=== PATIENT | male | born 1940 | race Caucasian/White ===

== ENCOUNTER → 2018-06-25 | Outpatient (CLI) | payer OTHER ==
[~2018-06-25] MED LIST: ALLOPURINOL 10100 M2 PO; ASPIRIN325 PO; CELEXA 20 MG TA20 M1 PO; DESYREL100 MG PO; DETROL LA4 MG PO; GABAPENTIN PO; HYDROCHLOROTHIA50 MG PO; INDOCIN SR75 MG PO; K-DUR10 ME1 PO; LISINOPRIL20 MG PO; LOVASTAT20 PO; MIRAPEX PO; PLAVIX 75 MG TA75 MG PO
--- NOTE | 2018-06-25 14:57 | 2DMMODE ---
[place] [address] 2 D/M-MODE ECHOCARDIOGRAM Name: HANS DAMON Room: [facility]#: [id number] Admission: 06/25/18 Attend Phys: Miriam Espinal, Discharge: Date of : 40 Date of Service: 06/25/18 1457 Report #: [id number] THIS REPORT FOR: //name// APPROVED REPORT Study performed: 06/25/2018 14:02:36 EXAM: Comprehensive 2D, Doppler, and color-flow Echocardiogram Patient Location: Out-Patient BSA: 2.56 HR: 74 bpm BP: 170/88 mmHg Other Information Study Quality: Adequate Indications CAD 2D Dimensions LVEF(%): 57.02 (>50%) IVSd: 13.79 (7-11mm) LVOT Diam: 24.02 (18-24mm) LVDd: 40.19 mm PWd: 12.55 (7-11mm) Ascending Ao: 38.38 (22-36mm) LVDs: 28.33 (25-40mm) Aortic Root: 31.93 mm Marquez's LVEF: 57.02 % Volumes Left Atrial Volume (Systole) LA ESV Index: 38.80 mL/m2 Aortic Valve AoV Peak Pepe.: 1.17 m/s AO Peak Gr.: 5.51 mmHg LVOT Max P.22 mmHg AO Mean Gr.: 3.42 mmHg LVOT Mean P.95 mmHg LVOT Max V: 1.03 m/s AO V2 VTI: 20.95 cm LVOT Mean V: 0.64 m/s ELAINE (VTI): 4.12 cm2 LVOT V1 VTI: 19.06 cm Mitral Valve E/A Ratio: 3.19 MV Decel. Time: 176.12 ms MV E Max Pepe.: 0.87 m/[place] [address] 2 D/M-MODE ECHOCARDIOGRAM Name: HANS DAMON Room: [facility]#: [id number] Admission: 06/25/18 Attend Phys: Miriam Espinal, Discharge: Date of : 40 Date of Service: 06/25/18 1457 Report #: [id number] MV PHT: 51.07 ms MVA (PHT): 4.31 cm2 TDI E/Lateral E': 8.70 E/Medial E': 8.70 Medial E' Pepe.: 0.10 m/s Lateral E' Pepe.: 0.10 m/s Pulmonary Valve PV Peak Pepe.: 0.99 m/s PV Peak Gr.: 3.92 mmHg Tricuspid Valve RAP Estimate: 5.00 mmHg TR Peak Gr.: 17.40 mmHg RVSP: 22.40 mmHg PA Pressure: 22.40 mmHg Left Ventricle The left ventricle is normal size. There is normal LV segmental wall motion. Mild left ventricular hypertrophy. Left ventricular systolic function is normal. The left ventricular ejection fraction is within the normal range. LVEF is 60-65%. This study is not technically sufficient to allow evaluation of the LV diastolic function due to atrial fibrillation. Right Ventricle The right ventricle is normal size. The right ventricular systolic function is normal. Atria Left atrium is mildly dilated. Aortic Valve Mild aortic valve sclerosis. No aortic regurgitation is present. There is no aortic valvular stenosis. Mitral Valve Mild mitral annular calcification. There is no mitral valve regurgitation noted. No evidence of mitral valve stenosis. Tricuspid Valve The tricuspid valve is normal in structure. Trace tricuspid regurgitation. Pulmonic Valve The pulmonary valve is normal in structure. There is no pulmonic [place] [address] 2 D/M-MODE ECHOCARDIOGRAM Name: HANS DAMON Room: [facility]#: [id number] Admission: 06/25/18 Attend Phys: Miriam Espinal, Discharge: Date of : 40 Date of Service: 06/25/18 1457 Report #: [id number] Great Vessels The aortic root is normal in size. IVC is normal in size and collapses with >50% inspiration Pericardium Mild circumferential pericardial effusion. <Conclusion> The left ventricle is normal size. Mild left ventricular hypertrophy. Left ventricular systolic function is normal. The left ventricular ejection fraction is within the normal range. LVEF is 60-65%. This study is not technically sufficient to allow evaluation of the LV diastolic function due to atrial fibrillation. The right ventricle is normal size. Left atrium is mildly dilated. Mild aortic valve sclerosis. No aortic regurgitation is present. There is no aortic valvular stenosis. Mild mitral annular calcification. There is no mitral valve regurgitation noted. No evidence of mitral valve stenosis. The tricuspid valve is normal in structure. Mild circumferential pericardial effusion. There is normal LV segmental wall motion. <ELECTRONICALLY SIGNED> By: Kennedy Tapia MD, FACC 06/25/18 1457 1457 1457 Kennedy Tapia MD, FACC /INF
== END ==
LOC: M.CRD 13:56
DX: I51.7 Cardiomegaly (principal); I34.8 Other nonrheumatic mitral valve disorders; I35.8 Other nonrheumatic aortic valve disorders; I25.10 Atherosclerotic heart disease of native coronary artery without angina pectoris; I48.1 Persistent atrial fibrillation

== ENCOUNTER → 2019-07-15 | Outpatient (CLI) | payer OTHER | LOC: M.WC 07:42 | DX: E11.622 Type 2 diabetes mellitus with other skin ulcer (principal); I87.311 Chronic venous hypertension (idiopathic) with ulcer of right lower extremity; L97.811 Non-pressure chronic ulcer of other part of right lower leg limited to breakdown of skin; I25.10 Atherosclerotic heart disease of native coronary artery without angina pectoris; I10 Essential (primary) hypertension; E11.40 Type 2 diabetes mellitus with diabetic neuropathy, unspecified; E66.01 Morbid (severe) obesity due to excess calories; M19.90 Unspecified osteoarthritis, unspecified site; I48.91 Unspecified atrial fibrillation; M06.9 Rheumatoid arthritis, unspecified; M10.9 Gout, unspecified; J44.9 Chronic obstructive pulmonary disease, unspecified; Z85.46 Personal history of malignant neoplasm of prostate; Z87.891 Personal history of nicotine dependence ==

== ENCOUNTER → 2019-07-23 | Outpatient (CLI) | payer OTHER | LOC: M.WC 04:58 | DX: E11.622 Type 2 diabetes mellitus with other skin ulcer (principal); I87.311 Chronic venous hypertension (idiopathic) with ulcer of right lower extremity; L97.811 Non-pressure chronic ulcer of other part of right lower leg limited to breakdown of skin; E11.40 Type 2 diabetes mellitus with diabetic neuropathy, unspecified; E66.01 Morbid (severe) obesity due to excess calories; M19.90 Unspecified osteoarthritis, unspecified site; I48.91 Unspecified atrial fibrillation; I25.10 Atherosclerotic heart disease of native coronary artery without angina pectoris; J44.9 Chronic obstructive pulmonary disease, unspecified; M10.9 Gout, unspecified; M06.9 Rheumatoid arthritis, unspecified; Z85.46 Personal history of malignant neoplasm of prostate; Z68.41 Body mass index [BMI] 40.0-44.9, adult; Z95.818 Presence of other cardiac implants and grafts; Z95.820 Peripheral vascular angioplasty status with implants and grafts; Z79.4 Long term (current) use of insulin; Z87.891 Personal history of nicotine dependence ==

== ENCOUNTER → 2019-07-29 | Outpatient (CLI) | payer OTHER | LOC: M.WC 05:18 | DX: E11.622 Type 2 diabetes mellitus with other skin ulcer (principal); I87.311 Chronic venous hypertension (idiopathic) with ulcer of right lower extremity; L97.818 Non-pressure chronic ulcer of other part of right lower leg with other specified severity; E11.40 Type 2 diabetes mellitus with diabetic neuropathy, unspecified; E66.01 Morbid (severe) obesity due to excess calories; I48.91 Unspecified atrial fibrillation; I25.10 Atherosclerotic heart disease of native coronary artery without angina pectoris; I10 Essential (primary) hypertension; J44.9 Chronic obstructive pulmonary disease, unspecified; M10.9 Gout, unspecified; M06.9 Rheumatoid arthritis, unspecified; Z85.46 Personal history of malignant neoplasm of prostate; Z87.891 Personal history of nicotine dependence; Z68.41 Body mass index [BMI] 40.0-44.9, adult ==

== ENCOUNTER → 2019-09-03 | Outpatient (CLI) | payer OTHER | LOC: M.WC 07:38 | DX: E11.622 Type 2 diabetes mellitus with other skin ulcer (principal); L97.811 Non-pressure chronic ulcer of other part of right lower leg limited to breakdown of skin; E11.40 Type 2 diabetes mellitus with diabetic neuropathy, unspecified; E66.01 Morbid (severe) obesity due to excess calories; I87.2 Venous insufficiency (chronic) (peripheral); I48.91 Unspecified atrial fibrillation; I25.10 Atherosclerotic heart disease of native coronary artery without angina pectoris; I10 Essential (primary) hypertension; J44.9 Chronic obstructive pulmonary disease, unspecified; M19.90 Unspecified osteoarthritis, unspecified site; M06.9 Rheumatoid arthritis, unspecified; Z85.46 Personal history of malignant neoplasm of prostate; Z87.891 Personal history of nicotine dependence; Z68.41 Body mass index [BMI] 40.0-44.9, adult; Z95.818 Presence of other cardiac implants and grafts ==

== ENCOUNTER → 2019-09-10 | Outpatient (CLI) | payer OTHER | LOC: M.WC 05:20 | DX: E11.622 Type 2 diabetes mellitus with other skin ulcer (principal); L97.811 Non-pressure chronic ulcer of other part of right lower leg limited to breakdown of skin; S81.801D Unspecified open wound, right lower leg, subsequent encounter; E11.40 Type 2 diabetes mellitus with diabetic neuropathy, unspecified; E66.01 Morbid (severe) obesity due to excess calories; I87.2 Venous insufficiency (chronic) (peripheral); I48.91 Unspecified atrial fibrillation; I25.10 Atherosclerotic heart disease of native coronary artery without angina pectoris; I10 Essential (primary) hypertension; J44.9 Chronic obstructive pulmonary disease, unspecified; M10.9 Gout, unspecified; M06.9 Rheumatoid arthritis, unspecified; Z85.46 Personal history of malignant neoplasm of prostate; Z68.41 Body mass index [BMI] 40.0-44.9, adult; Z87.891 Personal history of nicotine dependence; W19.XXXD Unspecified fall, subsequent encounter ==

== ENCOUNTER → 2019-09-17 | Outpatient (CLI) | payer OTHER | LOC: M.WC 05:15 | DX: E11.622 Type 2 diabetes mellitus with other skin ulcer (principal); L97.811 Non-pressure chronic ulcer of other part of right lower leg limited to breakdown of skin; S81.801D Unspecified open wound, right lower leg, subsequent encounter; E11.40 Type 2 diabetes mellitus with diabetic neuropathy, unspecified; E66.01 Morbid (severe) obesity due to excess calories; I87.2 Venous insufficiency (chronic) (peripheral); I48.91 Unspecified atrial fibrillation; I25.10 Atherosclerotic heart disease of native coronary artery without angina pectoris; I10 Essential (primary) hypertension; J44.9 Chronic obstructive pulmonary disease, unspecified; M06.9 Rheumatoid arthritis, unspecified; M10.9 Gout, unspecified; Z85.46 Personal history of malignant neoplasm of prostate; Z87.891 Personal history of nicotine dependence; Z68.41 Body mass index [BMI] 40.0-44.9, adult; W19.XXXD Unspecified fall, subsequent encounter ==

== ENCOUNTER → 2019-09-24 | Outpatient (CLI) | payer OTHER | LOC: M.WC 05:02 | DX: E11.622 Type 2 diabetes mellitus with other skin ulcer (principal); L97.811 Non-pressure chronic ulcer of other part of right lower leg limited to breakdown of skin; S81.801D Unspecified open wound, right lower leg, subsequent encounter; E11.40 Type 2 diabetes mellitus with diabetic neuropathy, unspecified; E66.01 Morbid (severe) obesity due to excess calories; I87.2 Venous insufficiency (chronic) (peripheral); I48.91 Unspecified atrial fibrillation; I25.10 Atherosclerotic heart disease of native coronary artery without angina pectoris; I10 Essential (primary) hypertension; J44.9 Chronic obstructive pulmonary disease, unspecified; M10.9 Gout, unspecified; M06.9 Rheumatoid arthritis, unspecified; Z85.46 Personal history of malignant neoplasm of prostate; Z87.891 Personal history of nicotine dependence; Z68.41 Body mass index [BMI] 40.0-44.9, adult; W19.XXXD Unspecified fall, subsequent encounter ==

== ENCOUNTER → 2019-10-01 | Outpatient (CLI) | payer OTHER | LOC: M.WC 04:22 | DX: E11.622 Type 2 diabetes mellitus with other skin ulcer (principal); L97.811 Non-pressure chronic ulcer of other part of right lower leg limited to breakdown of skin; S81.801D Unspecified open wound, right lower leg, subsequent encounter; E11.40 Type 2 diabetes mellitus with diabetic neuropathy, unspecified; E66.01 Morbid (severe) obesity due to excess calories; I87.2 Venous insufficiency (chronic) (peripheral); I48.91 Unspecified atrial fibrillation; I25.10 Atherosclerotic heart disease of native coronary artery without angina pectoris; I10 Essential (primary) hypertension; J44.9 Chronic obstructive pulmonary disease, unspecified; M10.9 Gout, unspecified; M06.9 Rheumatoid arthritis, unspecified; Z85.46 Personal history of malignant neoplasm of prostate; Z87.891 Personal history of nicotine dependence; Z68.41 Body mass index [BMI] 40.0-44.9, adult; W19.XXXD Unspecified fall, subsequent encounter ==

== ENCOUNTER → 2019-10-08 | Outpatient (CLI) | payer OTHER | LOC: M.WC 04:45 | DX: E11.622 Type 2 diabetes mellitus with other skin ulcer (principal); L97.811 Non-pressure chronic ulcer of other part of right lower leg limited to breakdown of skin; S81.801D Unspecified open wound, right lower leg, subsequent encounter; E11.40 Type 2 diabetes mellitus with diabetic neuropathy, unspecified; E66.01 Morbid (severe) obesity due to excess calories; I87.2 Venous insufficiency (chronic) (peripheral); I48.91 Unspecified atrial fibrillation; I25.10 Atherosclerotic heart disease of native coronary artery without angina pectoris; I10 Essential (primary) hypertension; J44.9 Chronic obstructive pulmonary disease, unspecified; M10.9 Gout, unspecified; M06.9 Rheumatoid arthritis, unspecified; Z85.46 Personal history of malignant neoplasm of prostate; Z87.891 Personal history of nicotine dependence; Z68.41 Body mass index [BMI] 40.0-44.9, adult; W19.XXXD Unspecified fall, subsequent encounter ==

== ENCOUNTER → 2019-10-15 | Outpatient (CLI) | payer OTHER | LOC: M.WC 05:13 | DX: E11.622 Type 2 diabetes mellitus with other skin ulcer (principal); L97.811 Non-pressure chronic ulcer of other part of right lower leg limited to breakdown of skin; S80.821A Blister (nonthermal), right lower leg, initial encounter; E11.40 Type 2 diabetes mellitus with diabetic neuropathy, unspecified; E66.01 Morbid (severe) obesity due to excess calories; I87.2 Venous insufficiency (chronic) (peripheral); I48.91 Unspecified atrial fibrillation; I25.10 Atherosclerotic heart disease of native coronary artery without angina pectoris; I10 Essential (primary) hypertension; J44.9 Chronic obstructive pulmonary disease, unspecified; M10.9 Gout, unspecified; M06.9 Rheumatoid arthritis, unspecified; Z85.46 Personal history of malignant neoplasm of prostate; Z87.891 Personal history of nicotine dependence; Z68.41 Body mass index [BMI] 40.0-44.9, adult; W19.XXXA Unspecified fall, initial encounter; Y93.89 Activity, other specified; Y92.89 Other specified places as the place of occurrence of the external cause; Y99.8 Other external cause status ==

== ENCOUNTER → 2019-10-22 | Outpatient (CLI) | payer OTHER | LOC: M.WC 04:43 | DX: E11.622 Type 2 diabetes mellitus with other skin ulcer (principal); L97.818 Non-pressure chronic ulcer of other part of right lower leg with other specified severity; E11.40 Type 2 diabetes mellitus with diabetic neuropathy, unspecified; E66.01 Morbid (severe) obesity due to excess calories; I87.2 Venous insufficiency (chronic) (peripheral); I48.91 Unspecified atrial fibrillation; I25.10 Atherosclerotic heart disease of native coronary artery without angina pectoris; I10 Essential (primary) hypertension; J44.9 Chronic obstructive pulmonary disease, unspecified; M06.9 Rheumatoid arthritis, unspecified; M10.9 Gout, unspecified; Z85.46 Personal history of malignant neoplasm of prostate; Z87.891 Personal history of nicotine dependence ==

== ENCOUNTER 2019-11-11 16:26 | Emergency (ER) | payer OTHER ==
[~2019-11-11] VITALS: Ht 182.9 cm; Wt 146.5 kg
[2019-11-11] MEDS ORDERED: METFORMIN HCL500 M3 PO (16:40)
[2019-11-11] MEDS ORDERED: PRANDIN1 MG PO (16:40)
[2019-11-11] MEDS ORDERED: FUROSEMIDE 40 M40 MG PO (16:41)
[2019-11-11] MEDS ORDERED: DIAZEPAM 5 MG5 M1 PO (16:41)
[2019-11-11] MEDS ORDERED: PERCOCET 5-3251 EACH PO (16:41)
[2019-11-11] MEDS ORDERED: OXYBUTYNIN 5 MG5 M2 PO (16:42)
[2019-11-11] MEDS ORDERED: COUMADIN7.5 MG PO (16:42)
[2019-11-11 20:12] VITALS: BP 163/82
== END 2019-11-11 20:16 | disposition home or self-care (01) ==
LOC: M.ERS 16:26
DX: S00.432A Contusion of left ear, initial encounter (principal); F17.210 Nicotine dependence, cigarettes, uncomplicated; Z96.651 Presence of right artificial knee joint; Z87.442 Personal history of urinary calculi; W18.39XA Other fall on same level, initial encounter; Y93.89 Activity, other specified; Y92.89 Other specified places as the place of occurrence of the external cause; Y99.8 Other external cause status

== ENCOUNTER → 2020-08-18 | Outpatient (CLI) | payer MEDICARE ==
[~2020-08-18] MED LIST changes: +COUMADIN7.5 MG PO; +DIAZEPAM 5 MG5 M1 PO; +FUROSEMIDE 40 M40 MG PO; +METFORMIN HCL500 M3 PO; +OXYBUTYNIN 5 MG5 M2 PO; +PERCOCET 5-3251 EACH PO; +PRANDIN1 MG PO
== END ==
LOC: M.WC 12:48
PROVIDERS: ATTEND Emergency Medicine Undersea and Hyperbaric Medicine
DX: E11.622 Type 2 diabetes mellitus with other skin ulcer (principal); L97.812 Non-pressure chronic ulcer of other part of right lower leg with fat layer exposed; L97.822 Non-pressure chronic ulcer of other part of left lower leg with fat layer exposed; I89.0 Lymphedema, not elsewhere classified; I87.2 Venous insufficiency (chronic) (peripheral); E11.40 Type 2 diabetes mellitus with diabetic neuropathy, unspecified; E66.01 Morbid (severe) obesity due to excess calories; I48.91 Unspecified atrial fibrillation; I25.10 Atherosclerotic heart disease of native coronary artery without angina pectoris; I10 Essential (primary) hypertension; J44.9 Chronic obstructive pulmonary disease, unspecified; M10.9 Gout, unspecified; M19.90 Unspecified osteoarthritis, unspecified site; M06.9 Rheumatoid arthritis, unspecified; Z85.46 Personal history of malignant neoplasm of prostate; Z87.891 Personal history of nicotine dependence; Z68.41 Body mass index [BMI] 40.0-44.9, adult; Z95.818 Presence of other cardiac implants and grafts

== ENCOUNTER → 2020-08-25 | Outpatient (CLI) | payer MEDICARE | LOC: M.WC 05:25 | PROVIDERS: ATTEND Emergency Medicine Undersea and Hyperbaric Medicine | DX: E11.622 Type 2 diabetes mellitus with other skin ulcer (principal); L97.812 Non-pressure chronic ulcer of other part of right lower leg with fat layer exposed; L97.822 Non-pressure chronic ulcer of other part of left lower leg with fat layer exposed; S81.002A Unspecified open wound, left knee, initial encounter; E11.40 Type 2 diabetes mellitus with diabetic neuropathy, unspecified; E66.01 Morbid (severe) obesity due to excess calories; I89.0 Lymphedema, not elsewhere classified; I87.2 Venous insufficiency (chronic) (peripheral); I48.91 Unspecified atrial fibrillation; I25.10 Atherosclerotic heart disease of native coronary artery without angina pectoris; I10 Essential (primary) hypertension; J44.9 Chronic obstructive pulmonary disease, unspecified; M10.9 Gout, unspecified; M06.9 Rheumatoid arthritis, unspecified; Z85.46 Personal history of malignant neoplasm of prostate; Z68.41 Body mass index [BMI] 40.0-44.9, adult; Z87.891 Personal history of nicotine dependence; X58.XXXA Exposure to other specified factors, initial encounter; Y93.89 Activity, other specified; Y92.89 Other specified places as the place of occurrence of the external cause; Y99.8 Other external cause status ==

== ENCOUNTER → 2020-09-01 | Outpatient (CLI) | payer MEDICARE | LOC: M.WC 07:51 | PROVIDERS: ATTEND Emergency Medicine Undersea and Hyperbaric Medicine | DX: E11.622 Type 2 diabetes mellitus with other skin ulcer (principal); L97.812 Non-pressure chronic ulcer of other part of right lower leg with fat layer exposed; L97.822 Non-pressure chronic ulcer of other part of left lower leg with fat layer exposed; S81.002D Unspecified open wound, left knee, subsequent encounter; E11.40 Type 2 diabetes mellitus with diabetic neuropathy, unspecified; E66.01 Morbid (severe) obesity due to excess calories; I89.0 Lymphedema, not elsewhere classified; I87.2 Venous insufficiency (chronic) (peripheral); I10 Essential (primary) hypertension; I48.91 Unspecified atrial fibrillation; I25.10 Atherosclerotic heart disease of native coronary artery without angina pectoris; J44.9 Chronic obstructive pulmonary disease, unspecified; M10.9 Gout, unspecified; M06.9 Rheumatoid arthritis, unspecified; Z85.46 Personal history of malignant neoplasm of prostate; Z68.41 Body mass index [BMI] 40.0-44.9, adult; Z87.891 Personal history of nicotine dependence; X58.XXXD Exposure to other specified factors, subsequent encounter ==

== ENCOUNTER → 2020-09-08 | Outpatient (CLI) | payer MEDICARE | LOC: M.WC 07:35 | PROVIDERS: ATTEND Emergency Medicine Undersea and Hyperbaric Medicine | DX: E11.622 Type 2 diabetes mellitus with other skin ulcer (principal); L97.812 Non-pressure chronic ulcer of other part of right lower leg with fat layer exposed; L97.822 Non-pressure chronic ulcer of other part of left lower leg with fat layer exposed; S81.002D Unspecified open wound, left knee, subsequent encounter; E11.40 Type 2 diabetes mellitus with diabetic neuropathy, unspecified; E66.01 Morbid (severe) obesity due to excess calories; I89.0 Lymphedema, not elsewhere classified; I87.2 Venous insufficiency (chronic) (peripheral); I48.91 Unspecified atrial fibrillation; I25.10 Atherosclerotic heart disease of native coronary artery without angina pectoris; I10 Essential (primary) hypertension; J44.9 Chronic obstructive pulmonary disease, unspecified; M06.9 Rheumatoid arthritis, unspecified; M10.9 Gout, unspecified; Z85.46 Personal history of malignant neoplasm of prostate; Z87.891 Personal history of nicotine dependence; Z68.41 Body mass index [BMI] 40.0-44.9, adult; X58.XXXD Exposure to other specified factors, subsequent encounter ==

== ENCOUNTER → 2020-09-15 | Outpatient (CLI) | payer MEDICARE | LOC: M.WC 00:41 | PROVIDERS: ATTEND Emergency Medicine Undersea and Hyperbaric Medicine | DX: E11.622 Type 2 diabetes mellitus with other skin ulcer (principal); L97.822 Non-pressure chronic ulcer of other part of left lower leg with fat layer exposed; L97.811 Non-pressure chronic ulcer of other part of right lower leg limited to breakdown of skin; E11.40 Type 2 diabetes mellitus with diabetic neuropathy, unspecified; E66.01 Morbid (severe) obesity due to excess calories; I89.0 Lymphedema, not elsewhere classified; I87.2 Venous insufficiency (chronic) (peripheral); I48.91 Unspecified atrial fibrillation; I25.10 Atherosclerotic heart disease of native coronary artery without angina pectoris; I10 Essential (primary) hypertension; J44.9 Chronic obstructive pulmonary disease, unspecified; M10.9 Gout, unspecified; M06.9 Rheumatoid arthritis, unspecified; Z85.46 Personal history of malignant neoplasm of prostate; Z87.891 Personal history of nicotine dependence; Z68.41 Body mass index [BMI] 40.0-44.9, adult ==

== ENCOUNTER → 2020-09-22 | Outpatient (CLI) | payer MEDICARE | LOC: M.WC 07:03 | PROVIDERS: ATTEND Emergency Medicine Undersea and Hyperbaric Medicine | DX: E11.622 Type 2 diabetes mellitus with other skin ulcer (principal); L97.822 Non-pressure chronic ulcer of other part of left lower leg with fat layer exposed; L97.811 Non-pressure chronic ulcer of other part of right lower leg limited to breakdown of skin; E11.40 Type 2 diabetes mellitus with diabetic neuropathy, unspecified; E66.01 Morbid (severe) obesity due to excess calories; I89.0 Lymphedema, not elsewhere classified; I87.2 Venous insufficiency (chronic) (peripheral); I48.91 Unspecified atrial fibrillation; I25.10 Atherosclerotic heart disease of native coronary artery without angina pectoris; I10 Essential (primary) hypertension; J44.9 Chronic obstructive pulmonary disease, unspecified; M10.9 Gout, unspecified; M06.9 Rheumatoid arthritis, unspecified; Z87.891 Personal history of nicotine dependence; Z85.46 Personal history of malignant neoplasm of prostate; Z68.41 Body mass index [BMI] 40.0-44.9, adult ==

== ENCOUNTER → 2020-09-29 | Outpatient (CLI) | payer MEDICARE | LOC: M.WC 07:56 | PROVIDERS: ATTEND Emergency Medicine Undersea and Hyperbaric Medicine | DX: E11.622 Type 2 diabetes mellitus with other skin ulcer (principal); L97.822 Non-pressure chronic ulcer of other part of left lower leg with fat layer exposed; L97.811 Non-pressure chronic ulcer of other part of right lower leg limited to breakdown of skin; E11.40 Type 2 diabetes mellitus with diabetic neuropathy, unspecified; E66.01 Morbid (severe) obesity due to excess calories; I89.0 Lymphedema, not elsewhere classified; I87.2 Venous insufficiency (chronic) (peripheral); I48.91 Unspecified atrial fibrillation; I25.10 Atherosclerotic heart disease of native coronary artery without angina pectoris; I10 Essential (primary) hypertension; J44.9 Chronic obstructive pulmonary disease, unspecified; M06.9 Rheumatoid arthritis, unspecified; M10.9 Gout, unspecified; Z85.46 Personal history of malignant neoplasm of prostate; Z87.891 Personal history of nicotine dependence ==

== ENCOUNTER → 2020-10-06 | Outpatient (CLI) | payer MEDICARE | LOC: M.WC 08:01 | PROVIDERS: ATTEND Emergency Medicine Undersea and Hyperbaric Medicine | DX: E11.622 Type 2 diabetes mellitus with other skin ulcer (principal); L97.828 Non-pressure chronic ulcer of other part of left lower leg with other specified severity; L97.811 Non-pressure chronic ulcer of other part of right lower leg limited to breakdown of skin; I87.2 Venous insufficiency (chronic) (peripheral); I89.0 Lymphedema, not elsewhere classified; E11.40 Type 2 diabetes mellitus with diabetic neuropathy, unspecified; M19.90 Unspecified osteoarthritis, unspecified site; I48.91 Unspecified atrial fibrillation; I25.10 Atherosclerotic heart disease of native coronary artery without angina pectoris; I10 Essential (primary) hypertension; M10.9 Gout, unspecified; M06.9 Rheumatoid arthritis, unspecified; J44.9 Chronic obstructive pulmonary disease, unspecified; E66.01 Morbid (severe) obesity due to excess calories; Z68.41 Body mass index [BMI] 40.0-44.9, adult; Z87.891 Personal history of nicotine dependence; Z85.46 Personal history of malignant neoplasm of prostate; Z79.4 Long term (current) use of insulin ==

== ENCOUNTER 2020-11-14 00:26 | Emergency (ER) | payer MEDICARE ==
[~2020-11-14] VITALS: Ht 182.9 cm; Wt 149.7 kg
[2020-11-14 01:06] LABS: INR 3.8; PROTIME 37.5 Seconds (9.20-11.50)
[2020-11-14 03:20] VITALS: BP 148/90
== END 2020-11-14 03:20 | disposition home or self-care (01) ==
LOC: M.ERS 00:26
PROVIDERS: Emergency Medicine Emergency Medical Services
DX: S01.312A Laceration without foreign body of left ear, initial encounter (principal); R79.1 Abnormal coagulation profile; Z79.899 Other long term (current) drug therapy; W22.8XXA Striking against or struck by other objects, initial encounter; Y93.89 Activity, other specified; Y92.89 Other specified places as the place of occurrence of the external cause; Y99.8 Other external cause status

== ENCOUNTER → 2020-12-25 | Outpatient (CLI) | payer MEDICARE | LOC: M.WC 08:24 | PROVIDERS: ATTEND Family Medicine | DX: E11.622 Type 2 diabetes mellitus with other skin ulcer (principal); I87.331 Chronic venous hypertension (idiopathic) with ulcer and inflammation of right lower extremity; L97.811 Non-pressure chronic ulcer of other part of right lower leg limited to breakdown of skin; I89.0 Lymphedema, not elsewhere classified; E11.42 Type 2 diabetes mellitus with diabetic polyneuropathy; E66.9 Obesity, unspecified; I48.91 Unspecified atrial fibrillation; I25.10 Atherosclerotic heart disease of native coronary artery without angina pectoris; I10 Essential (primary) hypertension; M10.9 Gout, unspecified; M06.9 Rheumatoid arthritis, unspecified; J44.9 Chronic obstructive pulmonary disease, unspecified; Z68.41 Body mass index [BMI] 40.0-44.9, adult; Z87.891 Personal history of nicotine dependence; Z85.46 Personal history of malignant neoplasm of prostate; Z79.4 Long term (current) use of insulin; Z95.818 Presence of other cardiac implants and grafts; Z95.820 Peripheral vascular angioplasty status with implants and grafts ==

== ENCOUNTER → 2021-01-01 | Outpatient (CLI) | payer MEDICARE | LOC: M.WC 08:33 | PROVIDERS: ATTEND Family Medicine | DX: E11.622 Type 2 diabetes mellitus with other skin ulcer (principal); I87.331 Chronic venous hypertension (idiopathic) with ulcer and inflammation of right lower extremity; L97.812 Non-pressure chronic ulcer of other part of right lower leg with fat layer exposed; E11.40 Type 2 diabetes mellitus with diabetic neuropathy, unspecified; R21 Rash and other nonspecific skin eruption; M19.90 Unspecified osteoarthritis, unspecified site; I48.91 Unspecified atrial fibrillation; J44.9 Chronic obstructive pulmonary disease, unspecified; M10.9 Gout, unspecified; M06.9 Rheumatoid arthritis, unspecified; E66.01 Morbid (severe) obesity due to excess calories; Z68.41 Body mass index [BMI] 40.0-44.9, adult; Z87.891 Personal history of nicotine dependence; Z85.46 Personal history of malignant neoplasm of prostate; Z79.4 Long term (current) use of insulin ==

== ENCOUNTER → 2021-01-08 | Outpatient (CLI) | payer MEDICARE | LOC: M.WC 08:39 | PROVIDERS: ATTEND Family Medicine | DX: E11.622 Type 2 diabetes mellitus with other skin ulcer (principal); I87.331 Chronic venous hypertension (idiopathic) with ulcer and inflammation of right lower extremity; L97.812 Non-pressure chronic ulcer of other part of right lower leg with fat layer exposed; E11.40 Type 2 diabetes mellitus with diabetic neuropathy, unspecified; M19.90 Unspecified osteoarthritis, unspecified site; I48.91 Unspecified atrial fibrillation; I25.10 Atherosclerotic heart disease of native coronary artery without angina pectoris; M10.9 Gout, unspecified; J44.9 Chronic obstructive pulmonary disease, unspecified; M06.9 Rheumatoid arthritis, unspecified; E66.01 Morbid (severe) obesity due to excess calories; Z68.41 Body mass index [BMI] 40.0-44.9, adult; Z85.46 Personal history of malignant neoplasm of prostate; Z87.891 Personal history of nicotine dependence; Z79.4 Long term (current) use of insulin ==

== ENCOUNTER → 2021-01-14 | Outpatient (CLI) | payer MEDICARE | LOC: M.WC 08:40 | PROVIDERS: ATTEND Surgery | DX: E11.622 Type 2 diabetes mellitus with other skin ulcer (principal); I87.331 Chronic venous hypertension (idiopathic) with ulcer and inflammation of right lower extremity; L97.812 Non-pressure chronic ulcer of other part of right lower leg with fat layer exposed; E11.40 Type 2 diabetes mellitus with diabetic neuropathy, unspecified; E66.01 Morbid (severe) obesity due to excess calories; I48.91 Unspecified atrial fibrillation; I25.10 Atherosclerotic heart disease of native coronary artery without angina pectoris; J44.9 Chronic obstructive pulmonary disease, unspecified; M10.9 Gout, unspecified; M06.9 Rheumatoid arthritis, unspecified; Z68.41 Body mass index [BMI] 40.0-44.9, adult; Z87.891 Personal history of nicotine dependence ==

== ENCOUNTER 2021-09-21 10:02 | Inpatient (IN) | payer MEDICARE ==
[~2021-09-21] VITALS: Ht 180.3 cm; Wt 152.9 kg
[~2021-09-21 10:02] MED LIST changes: -COUMADIN7.5 MG PO; -GABAPENTIN PO; -K-DUR10 ME1 PO; +K-DUR10 MEQ PO; -MIRAPEX PO; +MIRAPEX0.125 MG PO; +NEURONTIN600 MG PO; -PRANDIN1 MG PO; +REPAGLINIDE1 MG PO; +WARFARIN SODIU7.5 MG PO
[2021-09-21 10:03] VITALS: BP 146/84
[2021-09-21] MEDS ORDERED: FERRO-TIME325 MG PO (10:10)
[2021-09-21] MEDS ORDERED: GLIPIZIDE5 MG PO (10:11)
[2021-09-21] MEDS ORDERED: TOUJEO MAX300 UNIT/1 SUBQ (10:12)
[2021-09-21] MEDS ORDERED: NOVOLOG FL100 UNIT/M SUBQ (10:12)
[2021-09-21] MEDS ORDERED: OMEGA 3 1,0001 EACH PO (10:13)
[2021-09-21] MEDS ORDERED: MAGNESIUM400 M1 PO (10:13)
[2021-09-21] MEDS ORDERED: VITAMIN B-121000 MC2 SUBLING (10:15)
[2021-09-21] MEDS ORDERED: TRESIBA FL100 UNIT/1 SUBQ (10:15)
[2021-09-21] MEDS ORDERED: VITAMIN C100 MG PO (10:15)
[2021-09-21] MEDS ORDERED: VITAMIN D31250 MCG PO (10:16)
[2021-09-21] MEDS ORDERED: VITAMIN E100 UNIT PO (10:16)
[2021-09-21 10:30] LABS: ABSOLUTE BASOPHILS 0.1 thou/uL (0.0-0.2); ABSOLUTE EOSINOPHILS 0.1 thou/uL (0.0-0.7); ABSOLUTE LYMPHOCYTES 0.8 thou/uL (0.8-5.3); ABSOLUTE MONOCYTES 1.2 thou/uL (0.0-1.2); ABSOLUTE NEUTROPHILS 11.3 thou/uL (1.6-8.1); BASOPHILS 0.9 %; EOSINOPHILS 1.1 %; HEMATOCRIT 37.2 % (42.0-52.0); HEMOGLOBIN 12.2 gm/dL (14.0-18.0); LYMPHOCYTES 5.6 %; MCH 29.7 pg (26.0-34.0); MCHC 32.9 g/dL (28.0-37.0); MCV 90.3 fL (80.0-100.0); MONOCYTES 8.9 %; MPV 9.7 fl. (7.2-11.1); NUCLEATED RBCS 0 /100WBC; PLATELET COUNT* 165 thou/uL (150-400); POLYS 83.5 %; RBC 4.12 mil/uL (4.50-6.00); RDW-CV 15.2 % (10.5-14.5); WBC 13.5 thou/uL (4.0-11.0)
[2021-09-21 10:39] LABS: CALCIUM 10.1 mg/dL (8.5-10.1); CREATININE 1.7 mg/dL (0.6-1.3); POTASSIUM 4.3 mmol/L (3.5-5.1)
[2021-09-21 10:50] LABS: ALBUMIN 2.9 g/dL (3.4-5.0); TOTAL BILIRUBIN 0.5 mg/dL (<0.1-1.0); TOTAL PROTEIN 7.4 g/dL (6.4-8.2)
[2021-09-21 16:57] VITALS: BP 113/55
--- NOTE | 2021-09-21 18:14 | NUR ---
THIS RN RECEIVED CALL FROM STRETCHER LEVELER OPERATOR SKYLAR, [facility]OLOG[facility] ON THE WAY TO GET PT TO SURGERY FOR SCROTAL DRAIN PLACEMENT. PT MADE NPO.
[2021-09-22 00:56] VITALS: BP 120/62
[2021-09-22 05:20] VITALS: BP 127/64
[2021-09-22 08:47] LABS: ABSOLUTE EOSINOPHILS 0.2 thou/uL (0.0-0.7); ABSOLUTE LYMPHOCYTES 0.8 thou/uL (0.8-5.3); BASOPHILS 0.4 %; EOSINOPHILS 1.9 %; HEMATOCRIT 34.5 % (42.0-52.0); HEMOGLOBIN 11.1 gm/dL (14.0-18.0); LYMPHOCYTES 8.2 %; MCH 29.2 pg (26.0-34.0); MCHC 32.3 g/dL (28.0-37.0); MCV 90.2 fL (80.0-100.0); MONOCYTES 9.5 %; MPV 9.4 fl. (7.2-11.1); NUCLEATED RBCS 0 /100WBC; PLATELET COUNT* 176 thou/uL (150-400); RBC 3.82 mil/uL (4.50-6.00); RDW-CV 15.1 % (10.5-14.5)
[2021-09-22 09:00] VITALS: BP 132/63
[2021-09-22 12:00] VITALS: BP 120/62
--- NOTE | 2021-09-22 14:46 | NUR ---
CM ASSESSMENT: PT A&O, INDEPENDENT WITH ADL'S, ACTIVE AND DRIVES. PT RESIDES AT HOME ALONE. PT USES A WALKER FOR MOBILITY. PT IS CURRENTLY ON-SERIVCE WITH [facility], AND PLANS TO RESUME HH AT D/C. PT HAS 0 SNF HX. PHYSICIAN INFORMS THAT THE PT MIGHT BENEFIT FROM SNF AT D/C THE PT'S MOBILITY WAS COMPROMISED PRIOR TO ADMIT. CM WILL REMAIN AVIALABLE TO ASSIST AND FOLLOW NEEDED. [facility] PHONE: [phone]
--- NOTE | 2021-09-22 15:35 | NUR ---
[facility] called re: pt's status, and dx. fragoso indicated they are planning resumption of care at dc.
[2021-09-22 16:00] VITALS: BP 118/61
--- NOTE | 2021-09-22 17:22 | NUR ---
WOUND NURSE: RECEIVED CONSULT FOR PATIENT FOLLOWING SURGICAL I&D OF RIGHT SCROTAL ABSCESS. PHOTOGRAPHED AND MEASURED TODAY. MEASURES 6.0 X 6.0 X 2.0 CM WITH 1.0 CM UNDERMINING FROM 12 TO 12 O'CLOCK. MODERATE AMOUNT OF SANGUINOUS DRAINAGE ON OLD DRESSING. NO ACTIVE BLEEDING WITH DRESSING CHANGE. SIGNIFICANT PERIWOUND REDNESS AND WARMTH NOTED. REPORTED PAIN OF 5 AN DRECEIVED PAIN MEDICATION FROM HIS NURSE, EARLE. CLEANSED [facility] WOUND CLEANSER AND GAUZE, THEN PACKED LIGHTLY WITH AQUACEL AG, COVERED WITH ABD, SECURED IN PLACE USING KNIT PANTIES. THIS WAS TOLERATED WELL BY THE PATIENT. THIS WAS APPROVED BY DR. NARVAEZ VIA PHONE CALL BY THIS NURSE. PATIENT WEARING UNNABOOTS APPLIED BY HOME HEALTH PRIOR TO COMINING TO HOSPITAL. THERE ARE NO WOUNDS UNDERNEATH. REMOVED AND CLEANSED WITH SOAP AND WATER RINSED, THEN PATTED DRY. REAPPLIED UNNABOOTS UNDER COBAN TOES TO KNEE. THIS WAS TOLERATED WELL BY THE PATIENT.
[2021-09-22 20:00] VITALS: BP 122/68
[2021-09-23 00:31] VITALS: BP 115/58
[2021-09-23 04:00] VITALS: BP 134/67
--- NOTE | 2021-09-23 04:21 | NUR ---
PATIENT SLEPT WELL DURING THIS SHIFT. PT ASSISTED WITH TURNS Q2H PER PROTOCAL. PT WITH ABD OVER RT SCROTUM, WEARING MESH UNDERWEAR. PT WITH OLIVARES TO DEPENDENT DRAIN WITH YELLOW URINE. PERCOCET GIVEN X2 FOR SCROTUM PAIN. PT SR ON FLEXBOARD OPERATOR. PT HAS COMPRESSION WRAPS UNDER KNEE HIGH LETTY HOSE TO BILATERAL EXTREMITISE. FREQUENTLY USED ITEMS AND CALL LIGHT WITHIN REACH. SIDERAILS UPX3 AND BED ALARM ON. WILL CONTINUE TO MONITOR.
[2021-09-23 04:39] LABS: HEMOGLOBIN 10.6 gm/dL (14.0-18.0); MCV 90.4 fL (80.0-100.0)
[2021-09-23 04:41] LABS: HEMATOCRIT 32.5 % (42.0-52.0); MCH 29.6 pg (26.0-34.0); MCHC 32.7 g/dL (28.0-37.0); MPV 9.6 fl. (7.2-11.1); RBC 3.59 mil/uL (4.50-6.00); RDW-CV 15.2 % (10.5-14.5); WBC 7.6 thou/uL (4.0-11.0)
[2021-09-23 04:51] LABS: CALCIUM 9.6 mg/dL (8.5-10.1); CREATININE 1.6 mg/dL (0.6-1.3); POTASSIUM 4.2 mmol/L (3.5-5.1)
--- NOTE | 2021-09-23 08:02 | EKG ---
[place] [address] ELECTROCARDIOGRAM REPORT Name: HANS DAMON JU Room: [address] ADM IN M.R.#: [id number] Admission: 09/21/21 Attend Phys: Jose Antonio Burciaga Discharge: Date of : 40 Date of Service: 09/21/21 1026 Report #: [id number] THIS REPORT FOR: //name// [facility] ED Test Date: 2021-09-21 Test Time: 10:26:48 Pat Name: HANS DAMON Department: Room: [facility] Gender: M Chargemaster Analyst: MONIQUE : 1940 Requested By: Brandon Quijano Order Number: [id number] MD: Kane Ma Measurements Intervals [place] Rate: 76 P: TN: QRS: -78 QRSD: 98 T: 41 QT: 358 QTc: 403 Interpretive Statements Atrial fibrillation Anterolateral infarct, old Compared to ECG 05/07/2010 09:16:41 Myocardial infarct finding now present Sinus rhythm no longer present First degree AV block no longer present Left anterior fascicular block no longer present Electronically Signed On 09-23-2021 8:01:55 CDT by Kane Ma [email or web address] <ELECTRONICALLY SIGNED> By: Kane Ma MD, FACC 09/23/21 0801 1026 1026 Kane Ma MD, [facility] /EPI
[2021-09-23 08:31] VITALS: BP 136/73
[2021-09-23 12:49] VITALS: BP 146/62
--- NOTE | 2021-09-23 15:57 | NUR ---
PLAN OF CARE: PHYSICIAN INFORMS THAT THE PT IS NOT MEDICALLY STABLE AT THIS TIME. PT REMAINS TELE STATUS. PT/OT EVALS PENDING. PT MAY BENEFIT FROM SNF VS HH AT D/C. CM WILL REMAIN AVAILABLE TO ASSIST AND FOLLOW NEEDED.
--- NOTE | 2021-09-23 16:48 | NUR ---
ASSUMED PT CARE AT 0730. PT IS A&OX4, CONVERSATIONAL AND COOPERATIVE. ASSESSMENT COMPLETED AND MEDICATIONS ADMINISTERED ORDERED. TX COMPLETED TO BLE AND SCROTUM ORDERED. PT C/O PAIN AND MEDICATION ADMINISTERED WITH EFFECTIVE RESULTS. SAFETY MEASURES IN PLACE. PT VOICES NO CONCERNS AT HIS TIME.
[2021-09-23 19:08] VITALS: BP 141/84
[2021-09-23 21:08] VITALS: BP 148/61
[2021-09-24] VITALS (7 sets, daily range): BP systolic 105–158; BP diastolic 58–78
--- NOTE | 2021-09-24 04:32 | NUR ---
PT A&OX4, VSS ON 2L O2 NC, IV SALINE LOCKED. AFIB ON TELE MONITOR. PRN PO PAIN MED REQUESTED AND GIVEN ORDERED. URINARY CATHETER IN PLACE. PT REPOSITIONED Q2H. WILL CONTINUE TO MONITOR.
[2021-09-24 09:18] LABS: INR 1.8; PROTIME 18.2 Seconds (9.20-11.50)
--- NOTE | 2021-09-24 12:20 | NUR ---
Nutrition: Pt with scrotal abscess, seen for pressure ulcer risk. Pt stated he is eating well, CHO control diet. Admit wt: 314#. H/o afib, HTN, DM. Alb 2.9, BG 169. Pt agreed to Glucerna mateus for added protein. Meds noted. Consider low to mild risk.
--- NOTE | 2021-09-24 13:51 | NUR ---
PLAN OF CARE: PHYSICIAN INFORMS THAT THE PT WILL LIKELY REMAIN INPT THROUGH THE [place]. I.D. CONSULT PENDING AND NEEDED TO DETERMINE ABT COVERAGE/NEED. P.T. EVAL PENDING. PLAN FOR THE PT TO RESUME HH WITH [facility] AT D/C. CM WILL REMAIN AVAILABLE TO ASSIST AND FOLLOW NEEDED. [facility] PHONE: [phone] FAX: [phone]
--- NOTE | 2021-09-24 19:37 | NUR ---
Assumed care at 0730. Pt is alert and oriented. Assessment done and charted. Pt had unevenful day. Will continue care.
[2021-09-25] VITALS: BP 134/72
--- NOTE | 2021-09-25 03:57 | NUR ---
PT A&OX4, VSS ON 2L O2 NC, IV SALINE LOCKED, REPOSITIONED Q2H, URINARY CATHETER IN PLACE. PRN PO PAIN MED REQUESTED AND GIVEN ORDERED. AFIB ON TELE MONITOR. PT SLEEPING WELL, WILL CONTINUE TO MONITOR.
[2021-09-25 04:00] VITALS: BP 154/76
[2021-09-25 08:00] VITALS: BP 138/74
[2021-09-25] MEDS ORDERED: AMOX TR-K CLV1 EAC4 PO (08:07)
[2021-09-25] MEDS ORDERED: METRONIDAZOLE500 M4 PO (08:07)
[2021-09-25 08:21] LABS: ABSOLUTE EOSINOPHILS 0.4 thou/uL (0.0-0.7); ABSOLUTE LYMPHOCYTES 0.8 thou/uL (0.8-5.3); ABSOLUTE MONOCYTES 0.8 thou/uL (0.0-1.2); ABSOLUTE NEUTROPHILS 7.5 thou/uL (1.6-8.1); BASOPHILS 0.5 %; EOSINOPHILS 4.6 %; HEMATOCRIT 33.7 % (42.0-52.0); HEMOGLOBIN 10.9 gm/dL (14.0-18.0); LYMPHOCYTES 8.1 %; MCH 29.2 pg (26.0-34.0); MCHC 32.3 g/dL (28.0-37.0); MCV 90.2 fL (80.0-100.0); MONOCYTES 8.8 %; MPV 9.2 fl. (7.2-11.1); NUCLEATED RBCS 0 /100WBC; PLATELET COUNT* 220 thou/uL (150-400); RBC 3.73 mil/uL (4.50-6.00); RDW-CV 14.7 % (10.5-14.5); WBC 9.6 thou/uL (4.0-11.0)
[2021-09-25 08:37] LABS: INR 1.4
[2021-09-25 08:56] LABS: ALBUMIN 2.6 g/dL (3.4-5.0); CALCIUM 9.7 mg/dL (8.5-10.1); CREATININE 1.1 mg/dL (0.6-1.3); TOTAL BILIRUBIN 0.5 mg/dL (<0.1-1.0); TOTAL PROTEIN 6.7 g/dL (6.4-8.2)
[2021-09-25 12:48] VITALS: BP 128/70
[2021-09-25 17:27] VITALS: BP 126/67
[2021-09-25 20:00] VITALS: BP 122/56
[2021-09-26] VITALS: BP 160/73
[2021-09-26 04:00] VITALS: BP 148/83
--- NOTE | 2021-09-26 05:00 | NUR ---
PATIENT HAS REMAINED ALERT AND ORIENTED X 4 THROUGHOUT THE SHIFT AND RESTING QUIETLY ON HOURLY ROUNDS. ENCOURAGED TO TURN Q2H BUT DECLINED SEVERAL TIMES. WOUND CARE TO SCROTUM AT HS. MEDS PER ORDER. VITAL SIGNS STABLE. FALL PRECAUTIONS IN PLACE. CONTINUE TO MONITOR.
[2021-09-26 08:00] VITALS: BP 96/63
[2021-09-26 08:35] LABS: INR 1.3
[2021-09-26 12:28] VITALS: BP 128/59
[2021-09-26 17:36] VITALS: BP 103/56
[2021-09-26 19:45] VITALS: BP 117/49
[2021-09-27 00:35] VITALS: BP 128/47
[2021-09-27 04:00] VITALS: BP 129/72
[2021-09-27 04:54] LABS: INR 1.3; PROTIME 12.8 Seconds (9.20-11.50)
--- NOTE | 2021-09-27 05:24 | NUR ---
PT SLEPT WELL MOST OF THE NIGHT, AWAKE EARLY THIS MORNING WATCHING TV. AOX4,ABLE TO USE CALL LITE AND MAKE NEEDS KNOWN. RAC SL IV. O2 2L NC. TELE AFIB RATES 50'-70'S. OLIVARES DRAINING YELLOW URINE. HS ACCUCHECK 184. PT TURNED AND REPOSITIONED Q2 HOURS AND PRN FOR SKIN CARE AND COMFORT. DRSG CHANGED TO R SCROTAL WOUND, DRSG REMAINS CDI. PT WEAK, FATIGUED-PT/OT FOLLOWING WELL CM FOR DISCHARGE PLANS. BED ALRM ON FOR SAFETY.
[2021-09-27 08:00] VITALS: BP 129/73
[2021-09-27 12:50] VITALS: BP 148/66
[2021-09-27 17:14] VITALS: BP 128/74
[2021-09-27 21:00] VITALS: BP 124/65
[2021-09-28] VITALS: BP 116/50
[2021-09-28 04:00] VITALS: BP 116/66
--- NOTE | 2021-09-28 04:27 | NUR ---
PT A&O X 4. VSS ON 1L. MEDS GIVEN ORDERED. PT SLEPT MOST OF THE NIGHT. OLIVARES IN PLACE. NO C/O PAIN. CALL LIGHT WITHIN REACH. WILL CONTINUE TO MONITOR.
[2021-09-28 05:02] LABS: INR 1.3; PROTIME 13.5 Seconds (9.20-11.50)
--- NOTE | 2021-09-28 08:26 | NUR ---
PT TRANSFERING TO M/S. REPORT CALLED AND GIVEN TO RECEVING NURSE.
[2021-09-28 09:58] VITALS: BP 126/58
--- NOTE | 2021-09-28 13:51 | 2DMMODE ---
[place] [address] 2 D/M-MODE ECHOCARDIOGRAM Name: HANS DAMON Room: [address] ADM IN [facility]#: [id number] Admission: 09/21/21 Attend Phys: Jose Antonio Burciaga Discharge: Date of : 40 Date of Service: 09/28/21 1350 Report #: [id number] THIS REPORT FOR: cc: Valerie Adame,Kane Hanley MD [facility] ~ APPROVED REPORT Study performed: 09/28/2021 11:43:59 EXAM: Comprehensive 2D, Doppler, and color-flow Echocardiogram Patient Location: In-Patient Room #: [facility] Status: routine BSA: 2.63 HR: 56 bpm Rhythm: Atrial Fibrillation Indications Atrial Fibrillation Sepsis 2D Dimensions IVSd: 14.53 (7-11mm) LVOT Diam: 21.85 (18-24mm) LVDd: 40.63 mm PWd: 11.22 (7-11mm) Ascending Ao: 38.65 (22-36mm) LVDs: 20.20 (25-40mm) Aortic Root: 41.63 mm Volumes Left Atrial Volume (Systole) LA ESV Index: 37.70 mL/m2 Aortic Valve AoV Peak Pepe.: 1.14 m/s AO Peak Gr.: 5.22 mmHg LVOT Max P.50 mmHg AO Mean Gr.: 3.09 mmHg LVOT Mean P.14 mmHg LVOT Max V: 1.06 m/s AO V2 VTI: 20.85 cm LVOT Mean V: 0.67 m/s ELAINE (VTI): 4.16 cm2 LVOT V1 VTI: 23.14 cm Pulmonary Valve PV Peak Pepe.: 1.03 m/s PV Peak Gr.: 4.27 [place] [address] 2 D/M-MODE ECHOCARDIOGRAM Name: HANS DAMON JU Room: [address] IN [facility]#: [id number] Admission: 09/21/21 Attend Phys: Jose Antonio Burciaga Discharge: Date of : 40 Date of Service: 09/28/21 1350 Report #: [id number] Tricuspid Valve RAP Estimate: 5.00 mmHg TR Peak Gr.: 36.16 mmHg RVSP: 41.00 mmHg PA Pressure: 41.00 mmHg Left Ventricle The left ventricle is normal size. There is normal LV segmental wall motion. Mild to moderate concentric left ventricular hypertrophy. Left ventricular systolic function is normal. LVEF is 55-60%. This study is not technically sufficient to allow evaluation of the LV diastolic function due to atrial fibrillation. Right Ventricle The right ventricle is normal size. The right ventricular systolic function is normal. Atria Left atrium is moderately dilated. The right atrium size is normal. Aortic Valve Mild aortic valve sclerosis. No aortic regurgitation is present. There is no aortic valvular stenosis. Mitral Valve The mitral valve is normal in structure. There is no mitral valve regurgitation noted. No evidence of mitral valve stenosis. Tricuspid Valve The tricuspid valve is normal in structure. Trace tricuspid regurgitation. Moderate pulmonary hypertension. Unable to assess PA pressure. Trace tricuspid regurgitation. Trace to mild tricuspid regurgitation. Mild tricuspid regurgitation. Trace to mild tricuspid regurgitation. Trace tricuspid regurgitation. The RVSP is 45-50 mmHg. Pulmonic Valve The pulmonary valve is normal in structure. There is no pulmonic valvular regurgitation. Great Vessels The aortic root is normal in size. IVC is normal in size and collapses >50% with [place] [address] 2 D/M-MODE ECHOCARDIOGRAM Name: HANS DAMON Room: [address]#: [id number] Admission: 09/21/21 Attend Phys: Jose Antonio Burciaga Discharge: Date of : 40 Date of Service: 09/28/21 1350 Report #: [id number] Mild circumferential pericardial effusion. No echo indications of pericardial tamponade. Left pleural effusion. <Conclusion> The left ventricle is normal size. Mild to moderate concentric left ventricular hypertrophy. Left ventricular systolic function is normal. LVEF is 55-60%. This study is not technically sufficient to allow evaluation of the LV diastolic function due to atrial fibrillation. Left atrium is moderately dilated. Mild aortic valve sclerosis. There is no aortic valvular stenosis. Trace tricuspid regurgitation. Moderate pulmonary hypertension. Unable to assess PA pressure. Trace tricuspid regurgitation. Trace to mild tricuspid regurgitation. Mild tricuspid regurgitation. Trace to mild tricuspid regurgitation. Trace tricuspid regurgitation. The RVSP is 45-50 mmHg. Mild circumferential pericardial effusion. No echo indications of pericardial tamponade. Left pleural effusion. <ELECTRONICALLY SIGNED> By: Kane Ma MD, FACC 09/28/21 1350 1350 135 Kane Ma MD, FACC /INF
--- NOTE | 2021-09-28 15:24 | NUR ---
A&OX 4M OWD, PT SITTING UP IN CHAIR MOST OF DAY. SITTING ON PILLOW. BLISTERING ON BUTTOCK COCCYX AREA. THICK KURTIS CREAM APPLIED. IV RIGHT AC INTACT AND PATENT. USING 02 AT 1L PER NC. LUNGS CLEAR IN UPPER LOBES AND RALES NOTED IN LOWER LOBES. IRREGULAR HEART RATE. LOWER LEG EDEMA. SONIA LOWER LEGS WRAPPED. INDWELLING OLIVARES CATH INTACT AND PATENT OF CLEAR YELLOW URINE. NO C/O PAIN THIS SHIFT. SCROTAL ABSCESS DRESSING CHANGED. SEROSANG. DRAINAGE NOTED ON OLD DRESSING. AREA CLEANED WITH WOUND CLEANSER. TISSUE IS PINK AND GRANULATED. AQUACEL AG PLACED IN WOUND THEN 4X4'S AND COVERED WITH ABD PAD. MESH PANTY KEEPING DRESSING IN PLACE. WILL CONTINUE TO MONITOR. ECHO DONE AT BEDSIDE THIS AM. DISCHARGE TO [facility] PENDING INS. AUTH.
[2021-09-28 15:38] VITALS: BP 123/57
--- NOTE | 2021-09-28 16:14 | NUR ---
PLAN OF CARE: CM CONTINUES TO ATTEMPT TO SECURE SNF PLACEMENT FOR THE PT. [facility] DECLINED PT. CM SPOKE TO PT AND HE REQUEST SNF REFERRAL BE FAXED TO [facility], AND PT'S DTR REQUEST SNF REFERRAL BE SENT TO [facility]. CM FAXED TO BOTH. ACCEPTANCE AND INSURANCE AUTH PENDING. CM WILL REMAIN AVAILABLE TO ASSIST AND FOLLOW NEEDED.
--- NOTE | 2021-09-28 18:52 | NUR ---
PER DAUGHTER PT GOING HOME IS NOT AN OPTION. SHE WILL CALL [facility] TOMORROW.
[2021-09-28 19:45] VITALS: BP 120/63
--- NOTE | 2021-09-29 04:04 | NUR ---
PT A&O X 4. VSS ON RA. MEDS GIVEN ORDERED. DENIED PAIN. MAX ASSIST FOR REPOSITION. OLIVARES CATH IN PLACE. CALL LIGHT WITHIN REACH. WILL CONTINUE TO MONITOR.
[2021-09-29 04:59] LABS: INR 1.4; PROTIME 14.2 Seconds (9.20-11.50)
[2021-09-29 08:00] VITALS: BP 124/56
[2021-09-29 15:51] VITALS: BP 134/52
[2021-09-29 19:45] VITALS: BP 139/68
--- NOTE | 2021-09-30 04:12 | NUR ---
PT A&O X 4. ON RA. TRANSFERED FROM CHAIR TO BED WITH LIFTING DEVICE. NO C/O PAIN. DRESSING INTACT. MEDS GIVEN ORDERED. CALL LIGHT WITHIN REACH. WILL CONTINUE TO MONITOR.
[2021-09-30 04:21] LABS: INR 1.5; PROTIME 15.6 Seconds (9.20-11.50)
[2021-09-30 08:37] VITALS: BP 144/72
--- NOTE | 2021-09-30 14:41 | NUR ---
WOUND NURSE: PATIENT SEEN TODAY AND UNNABOOTS TO BLE WERE REMOVED AND REAPPLIED AFTER CLEANSING WITH SOAP AND WATER AND APPLYING LOTION. SCROTAL OPEN INCISION NOW MEASURING 6.0 X 3.5 X 0.6 CM. 100% BEEFY RED GRANULATION TISSUE, MODERATE AMOUNT OF SEROUSANGUINOUS DRAINAGE. WOUND CARE PROVIDED PRESCRIBED. BILATERAL BUTTOCK WOUND IDENTIFIED AND PRESENTS RUPTURED BULLA MEASURING 5.0 X 6.5 X 0.1 CM. PINK, NONGRANULATING TISSUE IN THE WOUND BED, SEROUS DRAINAGE MODERATE AMOUNT. CLEANSED WITH SOAP AND WATER, RINSED, THEN PATTED DRY. APPLIED SKIN PREP TO INTACT PERIWOUND TISSUE. APPLIED AQUACEL AG UNDER EXUDERM THEN SECURED WITH SURESITE TRANSPARENT DRESSING. PATIENT INSTRUCTED ON NEED FOR FREQUENT OFFLOADING TO PROMOTE HEALING. PATIENT STATES HE UNDERSTANDS.
--- NOTE | 2021-09-30 15:10 | NUR ---
PLAN OF CARE: CM RECIEVED A CALL FROM [facility] DECLINING THE PT. CM CALLED TO F/U WITH [facility] TO DISCUSS ABILITY TO ACCEPT PT. PT CLINICALLY ACCEPTED AND INSURANCE AUTH STARTED. PLAN FOR THE PT TO D/C TO [facility] PENDING INSURANCE AUTH. PT AND HIS DTR INFORMED. CM WILL REMAIN AVAILABLE TO ASSIST AND FOLLOW NEEDED.
[2021-09-30 16:00] VITALS: BP 130/67
[2021-09-30 20:28] VITALS: BP 124/58
--- NOTE | 2021-10-01 03:09 | NUR ---
ASSUMED CARE AT 1930. PATIENT HAS REMAINED ALERT AND ORIENTED X 4. RESTING QUIETLY ON HOURLY ROUNDS. AGREEABLE TO Q2H TURNS. DRESSINGS DRY AND INTACT TO RIGHT SCROTUM, BILAT BUTTOCKS AND BILAT LE. VITAL SIGNS STABLE. DENIES PAIN. AWAITING APPROVAL FOR SNF DISCHARGE. PROGRESSING TOWARDS DISCHARGE GOALS. FALL PRECAUTIONS IN PLACE. CONTINUE TO MONITOR.
[2021-10-01 04:17] LABS: INR 1.7; PROTIME 16.7 Seconds (9.20-11.50)
[2021-10-01 07:30] VITALS: BP 138/75
--- NOTE | 2021-10-01 16:35 | NUR ---
PLAN OF CARE: INSURANCE AUTH FOR SNF REMAINS PENDING. CM FAXED UPDATED PT/OT NOTES. CM WILL REMAIN AVAILABLE TO ASSIST AND FOLLOW NEEDED.
[2021-10-01 16:50] VITALS: BP 142/67
--- NOTE | 2021-10-01 17:20 | NUR ---
PATIENT PACKING TO SCROTUM CHANGED THIS SHIFT PER ORDERS. TURNED Q2. WORKED WITH PT OT TODAY. DR. HECK NOTIFIED OF ELEVATED SUGARS AND HOME MEDS REORDERED. SUPPOSITORY GIVEN THIS AFTERNOON, STILL NO BM. WILL GIVE MOM PRN ORDERED.
[2021-10-01 19:48] VITALS: BP 113/59
[2021-10-02 03:50] VITALS: BP 127/65
[2021-10-02 08:00] VITALS: BP 129/84
[2021-10-02 16:13] VITALS: BP 116/54
--- NOTE | 2021-10-02 17:47 | NUR ---
PT PROGRESSING TOWARDS DC GOALS. VSS AFEBRILE. PT HAS DRANK MAG CITRATE BUR NO BM OF YET. PT STATES HIS STOMACH IS GRUMBLING, SO MAYBE TONIGHT. PT DENIES PAIN AND BLOOD SUGARS HAVE BEEN BELOW 151. SO NO INSULIN GIVEN. PT HAS BEEN TURNING HIMSELF IN THE BED. WILL CONTINUE TO MONITOR PLAN OF CARE.
[2021-10-02 20:38] VITALS: BP 129/90
[2021-10-03 08:00] VITALS: BP 126/77
[2021-10-03 16:08] VITALS: BP 122/71
--- NOTE | 2021-10-03 18:24 | NUR ---
PT SLOWLY REACHING HIS DISCHARGWE GOALS, PT TURNED EVERY 2 HOURS, VSS AFEBRILE. WILL CONTINUE TO MONITOR PLAN OF CARE.
[2021-10-03 19:59] VITALS: BP 127/74
--- NOTE | 2021-10-04 04:59 | NUR ---
PT ALERT AND ORIENTED, 1.5L O2, MAX ASSIST, Q2 TURN. COMPRESSION STOCKING IN PLACE BLE, SCROTAL WOUND REINFORCED WITH ABD PAD, BUTTOCK WOUND HAS DRESSING IN PLACE. PT DID NOT REQUEST ANY PAIN MEDS THIS SHIFT, SLEPT WELL, RECEIVED ALL MEDS SCHEDULED. WILL CONTINUE TO MONITOR.
[2021-10-04 08:00] VITALS: BP 123/85
[2021-10-04] MEDS ORDERED: PERCOCET 5-3251 EACH PO (09:07)
[2021-10-04 16:00] VITALS: BP 114/53
--- NOTE | 2021-10-04 16:35 | NUR ---
PLAN OF CARE: PHYSICIAN INFORMS THAT THE PT IS MEDICALLY STABLE FOR D/C. CM CONTINUES TO AWAIT INSURANCE AUTH FOR THE PT. CM SPOKE TO ADMISSIONS AT [facility] AND THEY INFORM THAT INSURANCE AUTH HAD NOT BEEN RECIEVED. CM INFORMED BY CM DIRECTOR THAT HAD SPOKE TO [facility] THEY HAD APPROVED INSURANCE AUTH. CM MADE MULTIPLE ATTEMTPS TO CONTACT [facility] ADMISSIONS RICKIE POWELL TO DISCUSS THIS. NO RETURN CALL. CM FAXED INSURANCE AUTH INFO TO [facility]. CM WILL ATTEMPT TO CONTACT [facility] IN THE AM TO DISCUSS THIS FUTHER. CM WILL REMAIN AVAILABLE TO ASSIST AND FOLLOW NEEDED.
--- NOTE | 2021-10-04 18:12 | NUR ---
PATIENT RESTING IN BED. BLOOD SUGARS MONITORED, INSULIN GIVEN ORDERED. OLIVARES SECURELY IN PLACE TO DEPENDENT DRAINAGE WITHOUT DIFFICULTIES. ALERT AND ORIENTED X4. BED IN LOW/LOCKED POSITION. BED ALARM ON. CALL LIGHT WITHIN REACH. ALL QUESTIONS AND CONCERNS ADDRESSED.
[2021-10-04 20:00] VITALS: BP 128/68
[2021-10-04 20:23] LABS: INR 2.5; PROTIME 24.4 Seconds (9.20-11.50)
--- NOTE | 2021-10-05 04:42 | NUR ---
ASSUMED CARES AT 1920. ALERT AND ORIENTED. PLEASANT. O2 1.5L NC. OLIVARES CATHETER DD YELLOW URINE. PAIN MEDS GIVEN NEEDED FOR BACK PAIN. PT REPOSITIONED IN BED. SLEPT WELL. CALL LIGHT IN REACH AND BED ALARM ON.
[2021-10-05 15:59] VITALS: BP 139/62
--- NOTE | 2021-10-05 17:23 | NUR ---
PATIENT RESTING IN BED, EATING DINNER, WATCHING TV. BLOOD SUGARS MONITORED, INSULIN NOT NEEDED. OLIVARES SECURELY IN PLACE TO DEPENDENT DRAINAGE WITHOUT COMPLICATIONS. DRESSINGS TO MID-BUTTOCKS AND TO RIGHT SCROTUM CHANGED PER WOUND CARE INSTRUCTIONS. 1.5L OXYGEN, NASAL CANNULA. BED IN LOW/LOCKED POSITION. BED ALARM ON. CALL LIGHT WITHIN REACH. NO QUESTIONS OR CONCERNS VOICED.
[2021-10-05 19:45] VITALS: BP 117/53
--- NOTE | 2021-10-06 05:04 | NUR ---
PT SLEPT WELL OVERNIGHT. HS ACCUCHECK 200, INSULIN GIVEN ORDERED. NO IV ACCESS. O2 1.5LNC. TURNED AND REPOSITIONED Q2 HOURS AND PRN PT REQUEST FOR SKIN CARE AND COMFORT. DRSG CDI TO BUTTOCKS. BLE COMPRESSION WRAPS INTACT. TAKING MEDS SCHEDULED OVERNIGHT. OLIVARES DRAINING YELLOW URINE. CALL LITE IN EASY REACH, BED ALARM ON FOR SAFETY. CM FOLLOWING FOR DC PLAN TO FACILITY.
[2021-10-06 08:00] VITALS: BP 144/61
--- NOTE | 2021-10-06 16:31 | NUR ---
pt discharged to [facility] TERM [facility]. THE PT GOT UP AND WAS HELPED TO WHEEL CHair. pt left WITH ALL BELONGINGS, DAUGHTER WAS CALLED AND LET HER KNOW, THAT HE WAS GOING TODAY. PT DISMISSED TO NEW FACILITY. PT DENIED PAIN ON DISMISSAL.
--- NOTE | 2021-10-06 17:26 | NUR ---
WOUND NURSE: PATIENT SEEN FOR FOLLOW UP ASSESSMENT AND DRESSING CHANGES ALONG WITH UNNABOOT CHANGES TO BLE. SEE WOUND DOCUMENTATION UNDER NURSING INTERVENTION. PATIENT DISCHARGING THIS AFTERNOON.
--- NOTE | 2021-10-07 11:29 | OP ---
[address] [address] OPERATIVE REPORT Name: HANS DAMON Room: [address] IN M.R.#: [id number] Admission: 09/21/21 Attend Phys: Daniela Plascencia Discharge: 10/06/21 Date of : 40 Report #: [id number] THIS REPORT FOR: cc: Valerie Adame Linda J. DO Haggard, Kent L MD ~ DATE OF SURGERY: 09/21/2021 PREOPERATIVE DIAGNOSES: Urinary incontinence, right scrotal abscess. POSTOPERATIVE DIAGNOSES: Urinary incontinence, right scrotal abscess. PROCEDURES: Cystoscopy with complex Bella catheter placement, incision and drainage of right scrotal abscess. STAFF SURGEON: Issa Cade MD SURGICAL ATTENDANT: None. ANESTHESIA: General. ESTIMATED BLOOD LOSS: 75 mL COMPLICATIONS: None. SPECIMENS: Aerobic and anaerobic cultures. DRAIN: An 18-[place]-tip catheter. INDICATIONS: The patient is an 81-year-old diabetic, obese male with right groin pain, increased swelling and pain in the right hemiscrotum and reported fever. He presented at [facility] ER where CT scan documented an 11 cm right hemiscrotum abscess. He is incontinent of urine. He presents for cystoscopy with possible Bella catheter placement and incision and drainage of right hemiscrotum abscess. After risks and benefits of the procedure explained, informed consent was obtained. OPERATIVE PROCEDURE: The patient was taken to the operating room, comfortably placed in the dorsal lithotomy position under adequate general anesthesia. He is up to date on his broad spectrum antibiotic therapy. He was sterilely prepped and draped exposing the genitalia. The patient had markedly edematous scrotum and fluctuance in the right hemiscrotum, confirmed a markedly retracted phallus and edematous scrotum as well. I was able to take a 17-Swiss rigid cystoscope with 30-degree angle lens and placed into the retracted phallus tract, able to find the glans penis and find the meatus. I was able to negotiate the rigid scope into the meatus and follow the urethra [place] [id number] OPERATIVE REPORT Name: CATHERINEJASONHANS ROWELL JU Room: [address] IN [facility].#: [id number] Admission: 09/21/21 Attend Phys: Daniela Plascencia Discharge: 10/06/21 Date of : 40 Report #: [id number] down to the sphincter. 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 There was quite a bit of fluid in the bladder, 0.035 Glidewire was coiled in the bladder and the rigid scope removed. An 18-[place] tip catheter was advanced over the guidewire and secured with 10 mL of sterile water. Clear irrigation returned. This was placed to dependent drainage. I then turned to the fluctuant cavity in the right hemiscrotum. A 15-blade was used to make about a 1.5 cm incision, began to drain a dark burgundy fluid consistent with liquified hematoma with a very extremely foul smell. Aerobic and anaerobic cultures were achieved. The roof of the abscess was opened up. The contents were suctioned out with suction. The abscess cavity was unroofed exposing the cavity itself. The wound was irrigated. There were several bleeders along the edge that were fulgurated and in the most dependent part as well there were some areas that were fulgurated. Meticulous hemostasis was obtained throughout the entire area. I was able to irrigate, it was crystal clear. No sign of bleeding, venous or arterial. The wound was packed with Betadine stained saline with a Kerlix. This area serially packed. Telfa and a [TIME: 04:36] was put in place. He tolerated extremely well. He was extubated in the operating room, [facility] and went to recovery in stable condition. We will have wound care consult to help manage him here on out, probably would leave the catheter in place until the wound is healed or at least can tolerate wetness from the urine. <ELECTRONICALLY SIGNED> By: Issa Cade MD 10/07/21 [id number] 11Issa Cade MD /nt
== END 2021-10-06 16:30 | DRG 853 ==
LOC: M.ERS 10:02 → M.TBA-ER 12:05 → M.3W 12:05 → M.2W 12:05 → M.3W 09-28 08:57
PROVIDERS: Family Medicine; Internal Medicine; ADMIT Internal Medicine; ATTEND Internal Medicine
PROC: 0T9B80Z Drainage of Bladder with Drainage Device, Via Natural or Artificial Opening Endoscopic (ICD-10-PCS; principal; 2021-09-21)
PROC: 0V950ZZ Drainage of Scrotum, Open Approach (ICD-10-PCS; principal; 2021-09-21)
DX: A41.9 Sepsis, unspecified organism (principal); I50.33 Acute on chronic diastolic (congestive) heart failure; L03.314 Cellulitis of groin; N17.9 Acute kidney failure, unspecified; L02.215 Cutaneous abscess of perineum; I13.0 Hypertensive heart and chronic kidney disease with heart failure and stage 1 through stage 4 chronic kidney disease, or unspecified chronic kidney disease; Z96.651 Presence of right artificial knee joint; N49.2 Inflammatory disorders of scrotum; E78.5 Hyperlipidemia, unspecified; I48.91 Unspecified atrial fibrillation; M10.9 Gout, unspecified; E11.22 Type 2 diabetes mellitus with diabetic chronic kidney disease; F17.210 Nicotine dependence, cigarettes, uncomplicated; I25.10 Atherosclerotic heart disease of native coronary artery without angina pectoris; R32 Unspecified urinary incontinence; I89.0 Lymphedema, not elsewhere classified; N18.9 Chronic kidney disease, unspecified; K59.00 Constipation, unspecified; Z20.822 Contact with and (suspected) exposure to COVID-19; Z98.49 Cataract extraction status, unspecified eye; Z87.442 Personal history of urinary calculi; Z88.8 Allergy status to other drugs, medicaments and biological substances